=== PATIENT | female | born 1975 | race Caucasian/White ===

== ENCOUNTER 2020-12-15 17:53 | Inpatient (IN) | payer OTHER ==
[2020-12-15 18:52] VITALS: BMI 20.5
[2020-12-15] MEDS ORDERED: METHADONE HCL 10 MG TABLET (FOR DETOX USE ONLY) PO ONE (22:35)
[2020-12-15] MEDS ORDERED: guaiFENesin 200 MG/10 ML 10 ML UNIT-DOSE CUPS PO PRN (22:35)
[2020-12-15] MEDS ORDERED: NALOXONE HCL 0.4 MG/ML VIAL IM PRN (22:35)
[2020-12-15] MEDS ORDERED: NICOTINE POLACRILEX 2 MG GUM BUC PRN (22:35)
[2020-12-15] MEDS ORDERED: DICYCLOMINE HCL 10 MG CAPSULE PO PRN (22:35)
[2020-12-15] MEDS ORDERED: ACETAMINOPHEN 325 MG TABLET (FP) PO PRN (22:35)
[2020-12-15] MEDS ORDERED: MENTHOL/PHENOL 1 EACH UD MM PRN (22:35)
[2020-12-15] MEDS ORDERED: MAGNESIUM HYDROX 2400MG/30ML ORAL SUSPENSION 30 ML CUP PO PRN (22:35)
[2020-12-15] MEDS ORDERED: BISMUTH SUBSALICYLATE 524 MG/30 ML UD PO PRN (22:35)
[2020-12-15] MEDS ORDERED: IBUPROFEN 400 MG TABLET (FP) PO PRN (22:35)
[2020-12-15] MEDS ORDERED: P-EPHED 60MG/TRIPROLIDI 2.5MG TABLET PO PRN (22:35)
[2020-12-15] MEDS ORDERED: MAGNESIUM CITRATE 300 ML BOTTLE PO PRN (22:35)
[2020-12-16] MEDS ORDERED: METHADONE HCL 10 MG TABLET (FOR DETOX USE ONLY) ONE ×2 (00:39→09:11)
[2020-12-16] MEDS ORDERED: METHADONE HCL 5 MG TABLET (FOR DETOX USE ONLY) ONE (09:11)
[2020-12-16] MEDS: PRENATAL VITAMINS W/ FOLIC ACID TABLET (FP) PO SCH (09:34)
[2020-12-16] MEDS: NICOTINE 21 MG/24 HOURS TOPICAL PATCH TD SCH (09:34)
[2020-12-16] MEDS: METHOCARBAMOL 500 MG TABLET PO PRN ×2 (09:35→18:28)
[2020-12-16] MEDS ORDERED: METHOCARBAMOL 500 MG TABLET ONE (09:35)
[2020-12-16] MEDS ORDERED: METHADONE (DETOX) 20 MG, METHADONE (DETOX) 5 MG PO ONE (10:00)
[2020-12-16] MEDS ORDERED: diazePAM 5 MG TABLET ONE ×2 (10:14→10:16)
[2020-12-16] MEDS: diazePAM 5 MG TABLET PO PRN ×2 (10:19→20:06)
[2020-12-16 12:08] LABS: POTASSIUM 4.5 mmol/L (3.5-5.1)
[2020-12-16 12:10] LABS: HEMATOCRIT 38.8 % (32.4-45.2); HEMOGLOBIN 13.1 GM/dL (10.7-15.3); MCH 31.2 pg (25.7-33.7); MCHC 33.7 g/dl (32.0-36.0); MEAN CELL VOLUME 92.7 fl (80-96); MEAN PLT VOLUME 9.4 fl (7.5-11.1); PLATELET COUNT 227 K/MM3 (134-434); RBC 4.19 M/mm3 (3.60-5.2); WHITE BLOOD COUNT 8.6 K/mm3 (4.0-10.0)
[2020-12-16 12:17] LABS: ALBUMIN 3.4 g/dl (3.4-5.0); BLOOD UREA NITROGEN 14.1 mg/dL (7-18)
[2020-12-16 12:18] LABS: BILIRUBIN,TOTAL 0.4 mg/dL (0.2-1); TOT PROT 6.5 g/dl (6.4-8.2)
[2020-12-16 12:19] LABS: CALCIUM 8.7 mg/dL (8.5-10.1)
[2020-12-16 12:20] LABS: CREATININE 0.6 mg/dL (0.55-1.3)
[2020-12-16] MEDS: cloNIDine HCL 0.1 MG TABLET PO PRN (18:28)
[2020-12-16] MEDS: THIAMINE HCL 100 MG TABLET (FP) PO SCH (23:12)
[2020-12-16] MEDS: MELATONIN 5 MG TABLETS PO SCH (23:12)
[2020-12-17] MEDS: diazePAM 5 MG TABLET PO PRN ×5 (02:51→22:21)
[2020-12-17] MEDS: cloNIDine HCL 0.1 MG TABLET PO PRN ×2 (06:32→20:46)
[2020-12-17] MEDS ORDERED: METHADONE HCL 10 MG TABLET (FOR DETOX USE ONLY) PO ONE (10:00)
[2020-12-17] MEDS: PRENATAL VITAMINS W/ FOLIC ACID TABLET (FP) PO SCH (10:43)
[2020-12-17] MEDS: NICOTINE 21 MG/24 HOURS TOPICAL PATCH TD SCH (10:44)
[2020-12-17 16:15] LABS: PH,URINE 8.5 (5.0-8.0); URINE APPEARANCE CLEAR; URINE BILIRUBIN NEGATIVE (NEGATIVE); URINE COLOR YELLOW; URINE GLUCOSE (UA) NEGATIVE (NEGATIVE); URINE KETONE NEGATIVE (NEGATIVE); URINE LEUK ESTERASE NEGATIVE (NEGATIVE); URINE NITRITE NEGATIVE (NEGATIVE); URINE PROTEIN NEGATIVE (NEGATIVE); URINE UROBILINOGEN 0.2 mg/dL (0.2-1.0)
[2020-12-17] MEDS: THIAMINE HCL 100 MG TABLET (FP) PO SCH (22:21)
[2020-12-17] MEDS: MELATONIN 5 MG TABLETS PO SCH (22:21)
[2020-12-18] MEDS: diazePAM 5 MG TABLET PO PRN (01:57)
[2020-12-18] MEDS: MAG HYDROX/AL HYDROX/SIMETH 30 ML UNIT-DOSE CUP PO PRN ×2 (02:00→11:36)
[2020-12-18] MEDS: ONDANSETRON *ODT* 4 MG TABLET SL PRN ×2 (03:22→11:36)
[2020-12-18] MEDS ORDERED: TRIMETHOBENZAMIDE HCL 200MG/2ML INJ IM ONE (04:09)
[2020-12-18] MEDS ORDERED: METHADONE HCL 5 MG TABLET (FOR DETOX USE ONLY) ONE (08:58)
[2020-12-18] MEDS ORDERED: METHADONE HCL 10 MG TABLET (FOR DETOX USE ONLY) ONE (08:58)
[2020-12-18] MEDS ORDERED: METHADONE (DETOX) 10 MG, METHADONE (DETOX) 5 MG PO ONE (10:00)
[2020-12-18] MEDS ORDERED: PANTOPRAZOLE 40 MG TABLET PO SCH (10:00)
[2020-12-18] MEDS: NICOTINE 21 MG/24 HOURS TOPICAL PATCH TD SCH (10:15)
[2020-12-18] MEDS: PRENATAL VITAMINS W/ FOLIC ACID TABLET (FP) PO SCH (10:16)
[2020-12-18 11:15] VITALS: BP 112/72; PULSE 66; TEMP 97.3
[2020-12-18] MEDS ORDERED: MASKS NR ONE (12:27)
[2020-12-18] MEDS ORDERED: ALBUTEROL SO4 HFA INHALER IH PRN (12:39)
[2020-12-18] MEDS ORDERED: GABAPENTIN 400 MG CAPSULE PO PRN (12:40)
[2020-12-19] MEDS ORDERED: PATIENT'S OWN MEDICATION (NON-FORMULARY) (Oxybutynin Chloride [Ditropan Xl] 10 MG Tab.Er.2 PO SCH (10:00)
[2020-12-19] MEDS ORDERED: METHADONE HCL 10 MG TABLET (FOR DETOX USE ONLY) PO ONE (10:00)
[2020-12-20] MEDS ORDERED: METHADONE HCL 5 MG TABLET (FOR DETOX USE ONLY) PO ONE (06:00)
== END 2020-12-18 13:18 | disposition left against medical advice (07) | DRG 770 ==
LOC: YASAS 17:53 → Y6N 12-16 10:15
PROVIDERS: ADMIT Allergy & Immunology; ATTEND Allergy & Immunology
PROC: HZ2ZZZZ Detoxification Services for Substance Abuse Treatment (ICD-10-PCS; principal; 2020-12-16)
DX: F11.23 Opioid dependence with withdrawal (principal); F17.210 Nicotine dependence, cigarettes, uncomplicated; F19.282 Other psychoactive substance dependence with psychoactive substance-induced sleep disorder; F19.24 Other psychoactive substance dependence with psychoactive substance-induced mood disorder; J45.20 Mild intermittent asthma, uncomplicated; K29.70 Gastritis, unspecified, without bleeding; M54.5 Low back pain; G89.29 Other chronic pain; R32 Unspecified urinary incontinence; Z88.5 Allergy status to narcotic agent; Z88.6 Allergy status to analgesic agent
CPT/HCPCS: 36415; 80053; 81003; 81025; 85027; 86780; 93005; 93010; C9803; J0735; Q0162; U0003